=== PATIENT | male | born 1950 | race Caucasian/White ===

== ENCOUNTER 2022-01-10 15:59 | Outpatient (CLI) | payer MEDICARE, OTHER | END 2022-01-10 16:00 | disposition critical access hospital (66) | LOC: EMS 15:59 | DX: M54.50 Low back pain, unspecified (principal) | CPT/HCPCS: A0425; A0429 ==

== ENCOUNTER 2022-01-10 16:15 | Emergency (ER) | payer MEDICARE, OTHER ==
--- NOTE | 2022-01-10 16:26 | ED Physician Documentation ---
PD HPI BACK PAIN - Stated complaint Stated Complaint: BACK PX - History obtained from History obtained from: Patient, EMS - History of Present Illness Timing - onset: How many days ago (4) Timing - duration: Days (4) Timing - details: Abrupt onset (onset when twisted to get up out of bed. Pain has persisted with movement and standing, better with rested.), Still present Location: Lower, Left Quality: Pain, Spasm, Sharp Associated symptoms: No: Fever, Weakness, Numbness, Incontinent of urine Improves with: Rest Worsened by: Movement, Twisting, Palpation (some tender spots when was rubbing back at home.) Contributing factors: Twisting. No: Trauma, Cancer Similar symptoms before: Has not had sx before Recently seen: Not recently seen Review of Systems Constitutional: denies: Fever, Chills Nose: denies: Rhinorrhea / runny nose, Congestion Throat: denies: Sore throat Respiratory: denies: Cough GI: denies: Abdominal Pain, Nausea, Vomiting, Constipation, Diarrhea : denies: Dysuria, Frequency Skin: denies: Rash, Lesions Musculoskeletal: reports: Back pain. denies: Neck pain Neurologic: denies: Focal weakness, Numbness PD PAST MEDICAL HISTORY - Past Medical History Cardiovascular: Hypertension Respiratory: None Endocrine/Autoimmune: Type 2 diabetes GI: Other (IBD) - Present Medications Home Medications: Ambulatory Orders Medication Instructions Recorded Confirmed Aspirin [[place] Aspirin] 01/10/22 Glipizide [Glipizide Xl] 01/10/22 Ibuprofen [Motrin] 600 mg PO TID PRN #25 tab 01/10/22 Lisinopril [Zestril] 01/10/22 Propranolol ER [Inderal LA] 01/10/22 Semaglutide [Ozempic] 01/10/22 oxyCODONE [Roxicodone] 5 mg PO Q6H PRN #20 tablet 01/10/22 tiZANidine [Zanaflex] 4 mg PO Q8H PRN #25 tablet 01/10/22 - Allergies Allergies/Adverse Reactions: Allergies Allergy/AdvReac Type Severity Reaction Status Date / Time No Known Drug Allergies Allergy Verified 01/10/22 16:33 PD ED PE NORMAL - Vitals Vital signs reviewed: Yes - General General: Alert and oriented X 3, Well developed/nourished, Other (appears in pain wih slight movement of low back, with wincing face and back tightening c/w pain and spasm. ) - Cardiac Cardiac: RRR, No murmur - Respiratory Respiratory: Clear bilaterally - Abdomen Abdomen: Normal bowel sounds, Soft, Non tender, Non distended - Back Back: No spinal TTP (but there is tenderness in lower lumbar muscle in mid scapular line. No rash nor redness. ) - Derm Derm: Normal color, Warm and dry - Extremities Extremities: Normal ROM s pain, No edema, No calf tenderness / cord - Neuro Neuro: Alert and oriented X 3, No motor deficit, No sensory deficit, Normal speech, Other (normal patellar reflexes. ) Eye Opening: Spontaneous Motor: Obeys Commands Verbal: Oriented GCS Score: 15 Results - Vitals Vitals: Vital Signs - 24 hr 01/10/22 01/10/22 16:18 19:13 Temperature 36.6 C 36.6 C Heart Rate 80 77 Respiratory 18 16 Rate Blood Pressure 177/90 H 171/87 H O2 Saturation 99 99 Oxygen O2 Source Room air - Labs Labs: Laboratory Tests 01/10/22 01/10/22 16:36 16:36 WBC 17.0 H RBC 4.78 Hgb 15.0 Hct 44.3 MCV 92.7 MCH 31.4 H MCHC 33.9 RDW 14.9 Plt Count 187 MPV 9.6 Neut # (Auto) Not Reportable Lymph # (Auto) Not Reportable [place] # (Auto) Not Reportable Eos # (Auto) Not Reportable Baso # (Auto) Not Reportable Absolute Nucleated RBC Not Reportable Total Counted 100 Band Neuts % (Manual) 0 Reactive Lymphs % (Man) 25 Abnorm Lymph % (Manual) 0 Nucleated RBC % Not Reportable Neutrophils # (Manual) 3.6 Lymphocytes # (Manual) 12.9 H Monocytes # (Manual) 0.3 Eosinophils # (Manual) 0.2 Basophils # (Manual) 0.0 Differential Comment MANUAL DIFFERENTIAL WBC Morphology NORMAL APPEARANCE Platelet Estimate NORMAL (130-450,000) Platelet Morphology NORMAL APPEARANCE RBC Morph Micro Appear NORMAL APPEARANCE Sodium 139 Potassium 3.8 Chloride 101 Carbon Dioxide 25 Anion Gap 13.0 BUN 24 H Creatinine 1.2 Estimated GFR (MDRD) 60 L Glucose 215 H Calcium 8.7 Total Bilirubin 0.9 AST 25 ALT 24 Alkaline Phosphatase 81 Total Protein 6.7 Albumin 3.9 Globulin 2.8 Albumin/Globulin Ratio 1.4 Lipase 31 - Rads (name of study) abd/pelvic CT Radiology: Prelim report reviewed (multiple mesenteric and retroperitoneal as well as inguinal lymph nodes concerning for lymphoma. Spleen okay. Gallstones without gallbladder wall thickening nor surrounding fluid. ), See rad report Procedures - General procedure General procedure: muscle trigger point injection left lower lumbar area above the SI joint in area of point tenderness and spasm. Bupivocaine and Kenalog with 27 g needle. No complications. He subsequently did feel some improvement in spasms from the area. PD MEDICAL DECISION MAKING - ED course Complexity details: reviewed results (no kidney stones, aortic problems, diverticulitis. He does have lot of nodes mesenteric and retroperitoneal as well as inguinal (and hernias noted too inguinal/umbilical with just fat containing). Findings concerning for lymphoma. Will need to have PMD refer to surgery for lymph node biopsies.), re-evaluated patient (pain level decreased and tolerable with movement now. ), considered differential (consider muscle strain with spasms, but also at risk for aortic problems such as aneurysm/dissection, kidney stone, diverticulitis, other concerns. ), d/w patient Departure - Departure Disposition: 01 Home, Self Care Clinical Impression: Mesenteric lymphadenopathy Low back pain Qualifiers: Chronicity: acute Back pain laterality: left Sciatica presence: without sciatica Qualified Code(s): M54.50 - Low back pain, unspecified Condition: Stable Record reviewed to determine appropriate education?: Yes Instructions: ED Spasm Back No Trauma Follow-Up: BRIDGETT BURGESS [Primary Care Provider] - Prescriptions: Ibuprofen [Motrin] 600 mg PO TID PRN #25 tab PRN Reason: Pain oxyCODONE [Roxicodone] 5 mg PO Q6H PRN #20 tablet PRN Reason: Pain tiZANidine [Zanaflex] 4 mg PO Q8H PRN #25 tablet PRN Reason: Spasms Comments: Heat and gentle stretching for the low back muscles. Massage or chiropractic are also good. I presume you have a acute muscle spasm or strain in the low back. We will treat this with anti-inflammatories of ibuprofen with food 3 times a day for up to week. Also tizanidine muscle relaxant 3 times a day for spasms and stiffness. To this add Tylenol 500 mg 4 times a day. I would suggest regularly for the first several days up to week and then as needed. For worse pain also add oxycodone every 6 hours. I wrote a prescription for enough for several days to week. I transmitted the prescriptions to [facility] pharmacy in [place]. Also found on your CT scan was extensive lymphadenopathy (swollen glands). This may relate to inflammatory bowel disease or such given the location of it through the mesentery and also inguinal. However concerning would be instead a sign of a lymphatic disorder such as lymphoma. Your white count is little elevated at 17,000 with some reactive lymphs. This could go along with a lymphatic and blood disorder. Typically the work-up would include getting one of the lymph nodes for biopsy and pathology. Your most accessible ones are in the inguinal area. I would suggest following up with your primary care next week and having referral for either other advanced imaging or more likely surgery referral for lymph node biopsy to further assess this. I am prescribing a short course of narcotic pain medication for you. These are potentially dangerous and addictive medications that should be used carefully. These medications may constipate you. Take an [id number] stool softener such as docusate twice daily with plenty of water while taking these medic ations. If you go 24 hours without a bowel movement, take [id number] MiraLAX, per package instructions. Do not drink or drive while taking these medications. If you received narcotic or sedating medications while in the emergency department do not drive for 24 hours. Store this medication in a safe, secure place and out of reach of children. It is a violation of federal law to give or sell this medication to another person or to use in a manner other than prescribed. The ED will not refill narcotic prescriptions, including prescriptions lost or stolen. You can dispose of unwanted medications at the [facility]'s office or at several pharmacies such as [facility]. Discharge Date/Time: 01/10/22 19:16
[2022-01-10 16:42] LABS: BASOPHILS % (AUTO) 0.4 %; EOSINOPHILS % (AUTO) 1.1 %; HCT - HEMATOCRIT 44.3 % (42.0-52.0); MEAN CORPUSCULAR HEMOGLOBIN 31.4 pg (27.0-31.0); MEAN CORPUSCULAR HGB CONC 33.9 g/dL (32.0-36.0); MEAN CORPUSCULAR VOLUME 92.7 fL (80.0-94.0); MEAN PLATELET VOLUME 9.6 fL (7.4-11.4); MONOCYTES % (AUTO) 6.1 %; NEUTROPHILS % (AUTO) 21.2 %; PLT - PLATELET COUNT 187 10^3/uL (130-450); RED BLOOD COUNT 4.78 10^6/uL (4.70-6.10); RED CELL DISTRIBUTION WIDTH 14.9 % (12.0-15.0)
[2022-01-10 16:45] LABS: ABNORMAL LYMPHS % (MANUAL) 0 %; BAND NEUTROPHILS % (MANUAL) 0 %
[2022-01-10] MEDS: HYDROmorphone 1 MG/ML CARPUJECT IVP STA ×2 (16:48→18:34)
[2022-01-10] MEDS: KETOROLAC 15 MG/ML VIAL IVP STA (16:49)
[2022-01-10] MEDS: methocarbamoL 500 MG TABLET PO STA (16:50)
[2022-01-10 16:54] LABS: ALBUMIN 3.9 g/dL (3.2-5.5); ALBUMIN/GLOBULIN RATIO 1.4 (1.0-2.2); BILIRUBIN,TOTAL 0.9 mg/dL (0.2-1.0); CALCIUM 8.7 mg/dL (8.5-10.3); CREATININE 1.2 mg/dL (0.6-1.2); POTASSIUM 3.8 mmol/L (3.5-5.0); TOTAL PROTEIN 6.7 g/dL (6.7-8.2)
[2022-01-10] MEDS: TRIAMCINOLONE 40 MG/ML VIAL IM STA (16:54)
[2022-01-10 17:05] LABS: EOSINOPHILS # (MANUAL) 0.2 10^3/uL (0-0.7); LYMPHOCYTES # (MANUAL) 12.9 10^3/uL (1.5-3.5); LYMPHOCYTES % (MANUAL) 51 %; MONOCYTES # (MANUAL) 0.3 10^3/uL (0.0-1.0); NEUTROPHILS # (MANUAL) 3.6 10^3/uL (1.5-6.6); REACTIVE LYMPHS % (MANUAL) 25 %
[2022-01-10 17:06] LABS: DIFFERENTIAL COMMENT MANUAL DIFFERENTIAL; PLATELET ESTIMATE, MANUAL NORMAL (130-450,000) (NORMAL); PLATELET MORPHOLOGY NORMAL APPEARANCE (NORMAL); RBC MORPHOLOGY (MULTIPLE) NORMAL APPEARANCE (NORMAL); WBC MORPHOLOGY (MULTIPLE) NORMAL APPEARANCE (NORMAL)
[2022-01-10] MEDS ORDERED: IOVERSOL 320 100 ML VIAL IVP ONE (17:15)
[2022-01-10] MEDS: IOVERSOL 320 100 ML VIAL IVP ONE (17:25)
--- NOTE | 2022-01-10 17:46 | CT Report ---
PROCEDURE: Abdomen/Pelvis W INDICATIONS: kera/abd pain CONTRAST: IV CONTRAST: Optiray 320 ml: 100 PO CONTRAST: *NO PO CONTRAST TECHNIQUE: After the administration of IV contrast, 5 mm thick sections acquired from the diaphragms to the symp hysis. 5 mm thick coronal and sagittal reformats were acquired. For radiation dose reduction, the f ollowing was used: automated exposure control, adjustment of mA and/or kV according to patient size. COMPARISON: None. FINDINGS: Image quality: Excellent. ABDOMEN: Lung bases: Lung bases are clear. Heart size is normal. Solid organs: Liver and spleen are normal in size and enhancement. Gallbladder contains multiple sm all calcified stones in its dependent portion. No gallbladder wall thickening or pericholecystic flui d. Biliary system is non dilated. Pancreas enhances normally. No adrenal nodules. Kidneys demonst rate normal size and enhancement, without hydronephrosis. Left peripelvic renal cyst is seen measure s 2.9 x 2.6 cm in size. Peritoneum and bowel: Bowel loops demonstrate normal wall thickness and caliber. No free fluid or a ir. Nodes and vessels: Numerous borderline enlarged mesenteric lymph nodes are noted in mid abdomen along celiac axis and superior mesenteric artery and their distal branches and measures up to 1 cm in shor t axis diameter series 3 image 32. Prominent lymph nodes are also noted near GE junction measures up to 1.7 cm in short axis diameter series 3 image 22. Additional prominent retroperitoneal lymph nodes are seen measures up to 1.6 cm in left periaortic space series 3 image 34, 1.4 cm in left periaortic space series 3 image 46 and 1.3 cm anterior to IVC series 3 image 56. Prominent lymph nodes also seen along bilateral iliac vessels and measures up to 1.9 x 2.9 cm in size on the left side series 3 imag e 63 Aorta and inferior vena cava are normal in size. Miscellaneous: Small umbilical hernia is seen containing fat only. PELVIS: Genitourinary: Bladder wall thickness is normal. Enlarged prostate gland is seen with mass effect o n floor of urinary bladder. Miscellaneous: Bilateral inguinal hernias are seen containing fat only. Prominent bilateral inguinal lymph nodes are seen measures 1.7 cm in short axis diameter on the right side and 1.7 cm in short axi s diameter on the left side series 3 image 90. Bones: No suspicious bony lesions. No vertebral body compression fractures. Degenerative disc dise ase throughout thoracic and lumbar spine is seen. IMPRESSION: 1. Extensive mesenteric and retroperitoneal lymphadenopathy as described in detail above. Bilateral p elvic lymphadenopathy. Finding is concerning for systemic process such as lymphoma, suggest clinical correlation. 2. No bowel obstruction. No abnormal bowel wall thickening. No free fluid of free air. 3. Cholelithiasis without CT evidence of acute cholecystitis. Reviewed by: Juan Trevizo MD on 01/10/2022 5:44 PM PDT Approved by: Juan Trevizo MD on 01/10/2022 5:44 PM PDT Station ID: [id number]
[2022-01-10 19:16] VITALS: BP 171/87
== END 2022-01-10 19:16 | disposition home or self-care (01) ==
LOC: ED 16:15
DX: M54.50 Low back pain, unspecified (principal); I88.0 Nonspecific mesenteric lymphadenitis; I10 Essential (primary) hypertension; E11.9 Type 2 diabetes mellitus without complications; Z79.84 Long term (current) use of oral hypoglycemic drugs
CPT/HCPCS: 20552; 36415; 74177; 80053; 83690; 85025; 96374; 96375; 96376; 99284; A9270; J1170; Q9967